=== PATIENT | male | born 1955 | race Caucasian/White ===

== ENCOUNTER 2019-08-25 18:16 | Inpatient (IN) | payer BC, OTHER ==
[~2019-08-25] VITALS: Ht 175.3 cm; Wt 88.8 kg
--- NOTE | 2019-08-25 18:26 | NUR ---
REPORT FROM [facility] THAT PT IS ON WAY VIA AMBULANCE. WILL PASS REPORT TO ONCOMING SHIFT.
--- NOTE | 2019-08-25 18:32 | NUR ---
REC'D PER CART VIA EMS. ALERT AND ORIENTED, RESTING IN BED. DENIES PAIN AND RATES 1. DR. COFFEY NOTIFIED OF ADMIT AND NEED FOR ORDERS.
--- NOTE | 2019-08-25 19:00 | NUR ---
PATIENT IN BED, REPORTS COMFORT LEVEL. FAMILY PRESENT AT BEDSIDE
[2019-08-25] MEDS ORDERED: CATHETER FLUSH 10 ML SYR IV PRN (19:15)
[2019-08-25 20:03] LABS: HEMOGLOBIN 13.7 G/DL (13.3-17.7); RED CELL DISTRIBUTION WIDTH 12.7 % (10.0-14.5); WHITE BLOOD COUNT 15.8 10^3/uL (4.3-11.0)
[2019-08-25 20:07] VITALS: BP 159/87
[2019-08-25 20:16] LABS: CALCIUM 9.1 MG/DL (8.5-10.1); CARBON DIOXIDE 22 MMOL/L (21-32); CHLORIDE 108 MMOL/L (98-107); GLUCOSE 88 MG/DL (70-105); POTASSIUM 4.1 MMOL/L (3.6-5.0); SODIUM 142 MMOL/L (135-145)
[2019-08-25 20:26] LABS: BUN/CREATININE RATIO 13; CREATININE SERUM 1.12 MG/DL (0.60-1.30); GFR ESTIMATED > 60
[2019-08-25] MEDS: LACTATED RINGERS 1,000 ML IV SCH (21:32)
[2019-08-25] MEDS: fentaNYL INJECTION 100 MCG/2 ML AMP IVP PRN (21:34)
[2019-08-26] VITALS (14 sets, daily range): BP systolic 142–182; BP diastolic 65–97
[2019-08-26] MEDS: fentaNYL INJECTION 100 MCG/2 ML AMP IVP PRN ×3 (05:37→14:25)
[2019-08-26] MEDS: LACTATED RINGERS 1,000 ML IV SCH ×3 (06:02→16:48)
--- NOTE | 2019-08-26 08:45 | History & Physical ---
History of Present Illness History of Present Illness Reason for visit/HPI 64 yo M direct admit for left hip fracture sustained at work from a fall of about 2-2.5 feet (2nd or 3rd rung of a ladder). He says he his left hip took the fall and did not injure his arm/hand or head. No loss of consciousness. He laid on the floor for a little bit (a couple minutes) and got to a sitting position. A couple coworkers helped up to a chair with wheels and go him to the truck. He was brought to [facility] where he got a pain shot in his right glut and xrays showed a fractured left hip. EDGAR Palmer called orthopedics who agreed to see patient at [facility] for further evaluation. I am patient's PCP so the patient was admitted to me. Patient currently has no complaints. He is hungry but has not ate since lunch yesterday. Denies any recent illnesses. No issues with bowels or bladder. His pain is in his left hip and does not radiate much. Fentanyl overnight has kept his pain level tolerable. Date of Admission Aug 25, 2019 at 6:33 pm Time Seen by a Provider: 08:20 I consulted on this patient on 08/26/19 08:39 Attending Physician Mejia Coffey MD Admitting Physician Mejia Coffey MD Consult Dr. Weston Jarrell Allergies and Home Medications Allergies Coded Allergies: No Known Drug Allergies (Unverified , 05/23/15) Home Medications Ibuprofen 200 Mg Tablet, 400 MG PO Q8H PRN for PAIN-MILD, (Reported) Multivitamin 1 Each Tablet, 1 TAB PO DAILY, (Reported) Vit C/Starks & Celery Ex/Grp E 1 Each Capsule, 1 CAP PO DAILY, (Reported) Patient Home Medication List Home Medication List Reviewed: Yes Past Agodjhy-Etvihy-Xltwdh Hx Patient Social History Marrital Status: Employed/Student: employed Alcohol Use: Denies Use Recreational Drug Use: No Smoking Status: Never a Smoker Physical Abuse Screen: No Sexual Abuse: No Recent Foreign Travel: No Contact w/other who traveled: No Recent Hopitalizations: No Recent Infectious Disease Expo: No Seasonal Allergies Seasonal Allergies: Yes Surgeries No Respiratory No Cardiovascular No Neurological No Genitourinary No Gastrointestinal No Musculoskeletal No Endocrine History of Endocrine Disorders: No HEENT History of HEENT Disorders: No Cancer No Psychosocial History of Psychiatric Problem: No Integumentary History of Skin or Integumenta: No Blood Transfusions History of Blood Disorders: No Adverse Reaction to a Blood Tr: No Review of Systems Review of Systems General: No Chills, No Night Sweats HEENT: No Head Aches, No Visual Changes Pulmonary: No Dyspnea, No Cough Cardiovascular: No: Chest Pain, Palpitations Gastrointestinal: No: Nausea, Vomiting, Abdominal Pain Genitourinary: No Dysuria, No Frequency Musculoskeletal: leg pain (left hip pain) Neurological: Weakness Physical Exam Vital Signs Vital Signs - First Documented 08/25/19 08/26/19 20:07 17:47 Temp 37.3 Pulse 80 Resp 20 B/P (MAP) 159/87 (111) Pulse Ox 96 O2 Flow Rate 8 Capillary Refill : Less Than 3 Seconds Height, Weight, BMI Height: '" Weight: lbs. oz. kg; 28.89 BMI Method: General Appearance: WD/WN, Mild Distress (with movement; no issue resting) HEENT: PERRL/EOMI Neck: Non Tender Respiratory: Chest Non Tender, Lungs Clear, Normal Breath Sounds, No Accessory Muscle Use, No Respiratory Distress Cardiovascular: Regular Rate, Rhythm, No Edema Gastrointestinal: Non Tender, Soft Rectal: Deferred Back: Normal Inspection, No CVA Tenderness Extremity: Non Tender, Other (pain with moving left hip) Neurologic/Psychiatric: Alert, Oriented x3, No Motor/Sensory Deficits Skin: Normal Color Assessment/Plan Assessment/Plan Admission Dx left hip pain Admission Status: Inpatient Order (span 2 midnights) Reason for Inpatient Admission: left hip pain with left hip fracture He will require 2 midnights to evaluate and undergo surgery for his left hip and then work on a rehab plan. Blood pressure is elevated as well so we will work on getting that under control. Pain is also likely playing a role. Assessment and Plan 08/26/19- IVF LR, NPO for surgery obtaining left hip xrays to further evaluate after his transfer from [facility] fentanyl 50mcg IV for pain is working well. --Dr. Jarrell consulted for Orthopedics. Dispo: good prognosis for successful surgery and rehab. Problems: (1) Fracture of femoral neck, left Qualifiers: Qualified Codes: S72.002A - Fracture of unspecified part of neck of left femur, initial encounter for closed fracture (2) Left hip pain (3) Hypertension Assessment & Plan: previously on losartan but stopped it because he was having normal readings off of it. (4) Gout Assessment & Plan: history of gout treating previously with colchicine. Clinical Quality Measures DVT/VTE Risk/Contraindication: Risk Factor Score Per Nursin RFS Level Per Nursing on Admit: 4+=Very High MEJIA COFFEY MD Aug 26, 2019 08:45
[2019-08-26] MEDS ORDERED: MULT1TAB69 PO (09:06)
[2019-08-26] MEDS ORDERED: IBUP-30 PO (09:06)
[2019-08-26] MEDS ORDERED: VIT1CAPS4 PO (09:06)
--- NOTE | 2019-08-26 09:06 | NUR ---
SPOKE WITH THE PATIENT ABOUT HIS MEDICATIONS. HE STATES HE DOES NOT TAKE ANYTHING ON A REGULAR BASIS PRESCRIPTION. HE HAS BEEN TAKING A MTV DAILY AND JOSHI TART DAILY OTC. HE ALSO TAKES 2 IBU OTC NEEDED BUT NOT VERY OFTEN. HE RECENTLY TOOK A ROUND OF COLCHICINE BUT DOES NOT TAKE IT REGULARLY.
--- NOTE | 2019-08-26 10:20 | Diagnostic Imaging Report ---
Left hip at 9:40. Indication: Hip pain AP and lateral views were obtained. There are no prior studies available for comparison. There is a slightly impacted essentially nondisplaced fracture of the left femoral neck. No other fracture or acute bony abnormality is noted. Hip joint itself is well maintained. The soft tissues are unremarkable. Impression: 1. There is a slightly impacted essentially nondisplaced fracture left femoral neck. If further evaluation of the extent of injury to the left femoral neck is desired, then CT will be recommended. 2. There is no acute bony abnormality noted otherwise. 3. The results were called to Dr. Meija Adam. Dictated by: Dictated on workstation # [id number]
[2019-08-26] MEDS ORDERED: LACTATED RINGERS 1,000 ML IV PRN (14:12)
[2019-08-26] MEDS ORDERED: proPOfol 200 MG/20 ML (DIPRIVAN) VIAL IV ONE (14:46)
[2019-08-26] MEDS ORDERED: BUPIVACAINE 0.25% 30 ML (SENSORCAINE) VIAL ONE ×2 (14:46→16:23)
[2019-08-26] MEDS ORDERED: LIDOCAINE PF 2% 5 ML (XYLOCAINE) VIAL ONE (14:46)
[2019-08-26] MEDS ORDERED: fentaNYL INJECTION 100 MCG/2 ML AMP ONE (14:46)
[2019-08-26] MEDS ORDERED: BUPIVACAINE 0.5% 30 ML (SENSORCAINE) VIAL ONE (14:55)
[2019-08-26] MEDS ORDERED: SEVOFLURANE (ULTANE) 15 ML INHAL SOLN ONE ×3 (16:00→17:42)
[2019-08-26] MEDS ORDERED: MIDAZOLAM 2 MG/2 ML (VERSED) VIAL ONE (16:00)
--- NOTE | 2019-08-26 16:07 | Consultation ---
History of Present Illness History of Present Illness Patient Consulted On(rom/time) 08/26/19 16:02 Date Seen by Provider: Aug 26, 2019 Time Seen by Provider: 16:03 Reason for Visit: Left hip fracture History of Present Illness Patient a pleasant 64 y/o WM that presents with CC of acute onset of severe Left hip pain secondary to a fall from the low portion of a step ladder. He denies additional injuries and has no additional complaints. Orthopedic service consulted for definitive management of his injury. Allergies and Home Medications Allergies Coded Allergies: No Known Drug Allergies (Unverified , 05/23/15) Home Medications Ibuprofen 200 Mg Tablet, 400 MG PO Q8H PRN for PAIN-MILD, (Reported) Multivitamin 1 Each Tablet, 1 TAB PO DAILY, (Reported) Vit C/Starks & Celery Ex/Grp E 1 Each Capsule, 1 CAP PO DAILY, (Reported) Patient Home Medication List Home Medication List Reviewed: Yes Past Nfzivmv-Novfbe-Mwggfu Hx Patient Social History Alcohol Use: Denies Use Recreational Drug Use: No Smoking Status: Never a Smoker Recent Foreign Travel: No Contact w/Someone Who Travel: No Recent Infectious Disease Expo: No Recent Hopitalizations: No Seasonal Allergies Seasonal Allergies: Yes Past Medical History Surgeries: No Respiratory: No Cardiac: No Neurological: No Genitourinary: No Gastrointestinal: No Musculoskeletal: No Endocrine: No HEENT: No Cancer: No Psychosocial: No Integumentary: No Blood Disorders: No Adverse Reaction/Blood Tranf: No Review of Systems-General Constitutional: no symptoms reported EENTM: no symptoms reported Respiratory: no symptoms reported Cardiovascular: no symptoms reported Gastrointestinal: no symptoms reported Genitourinary: no symptoms reported Musculoskeletal: joint pain Skin: no symptoms reported Psychiatric/Neurological: No Symptoms Reported Physical Exam-General Problems Physical Exam Vital Signs Vital Signs - First Documented 08/25/19 20:07 Temp 37.3 Pulse 80 Resp 20 B/P (MAP) 159/87 (111) Pulse Ox 96 Capillary Refill : Less Than 3 Seconds Eyes: Bilateral Eye Normal Inspection, Bilateral Eye PERRL, Bilateral Eye EOMI HEENT: PERRL/EOMI, normal ENT inspection Neck: non-tender, full range of motion, supple, normal inspection Respiratory: chest non-tender, no respiratory distress, no accessory muscle use Cardiovascular: normal peripheral pulses, regular rate, rhythm, no edema Peripheral Pulses: 2+ Dorsalis Pedis (R), 2+ Left Dors-Pedis (L) Gastrointestinal: non tender, soft, no organomegaly, no pulsatile mass Extremities: no calf tenderness, normal capillary refill, other (LLE: motor/sensation grossly intact, all compartments soft/NT, foot well perfused, no open wounds) Neurologic/Psychiatric: incident coordinator II-XII nml as tested, no motor/sensory deficits, alert, normal mood/affect, oriented x 3 Skin: warm/dry Assessment/Plan Assessment/Plan Admission Diagnosis/Plan Left femoral neck fracture Plan for primary fixation with screws Treatment plan discussed. Questions addressed and answered Informed consent obtained Clinical Quality Measures DVT/VTE Risk/Contraindication: Risk Factor Score Per Nursin RFS Level Per Nursing on Admit: 4+=Very High ABHISHEK WITT DO Aug 26, 2019 16:07
[2019-08-26] MEDS ORDERED: ONDANSETRON 4 MG/2 ML (SDV) Z0FRAN ONE ×2 (16:18→16:32)
[2019-08-26] MEDS ORDERED: PHENYLEPHRINE 100 MCG/ML 10 ML (ANESTHESIA) SYR ONE (16:18)
[2019-08-26] MEDS ORDERED: DEXAMETHASONE 10 MG/ML (DECADRON) 1 ML VIAL ONE (16:18)
[2019-08-26] MEDS ORDERED: morphine INJ 10 MG/ML 1ML (SYR OR VIAL) ONE (16:32)
[2019-08-26] MEDS ORDERED: HYDROmorphone 2 MG/ML VIAL (DILAUDID) ONE (16:32)
[2019-08-26] MEDS ORDERED: ceFAZolin INJECTION 2,000 MG ONE (16:39)
--- NOTE | 2019-08-26 17:31 | Diagnostic Imaging Report ---
RESULT: HISTORY: 64 years-old Male with left femur fracture. COMPARISON: Radiographs from the same day. TECHNIQUE: Four intraoperative fluoroscopic images of the left hip in the frontal and lateral projections. FLUOROSCOPIC TIME: 112.2 seconds. FINDINGS: Intraoperative fluoroscopic images were obtained during internal fixation of the proximal left femur with three partially threaded cannulated cephalo-cervical screws. Alignment appears improved. IMPRESSION: Fluoroscopic intraoperative images obtained during internal fixation of the left femoral neck fracture. Dictated by: Dictated on workstation # [id number]
--- NOTE | 2019-08-26 17:38 | Progress Note-Post Operative ---
Post-Operative Progess Note Surgeon (s)/Member Of Technical Staff (s) Surgeon ABHISHEK WITT DO Member Of Technical Staff: None Pre-Operative Diagnosis Minimally displaced fracture Left femoral neck Post-Operative Diagnosis Same Procedure & Operative Findings Date of Procedure 08/26/19 Procedure Performed/Findings Closed reduction/internal fixation Left femoral neck fracture Anesthesia Type GETA Estimated Blood Loss Estimated blood loss (mL): 20 Specimens/Packing Specimens Removed None Packing: No packing Complications: none Drains: none Disposition: tolerated procedure well; transferred to PACU in stable condition ABHISHEK WITT DO Aug 26, 2019 17:38
[2019-08-26] MEDS ORDERED: HYDROmorphone 2 MG/ML VIAL (DILAUDID) IV ONE (18:00)
[2019-08-26] MEDS ORDERED: PROMETHAZINE INJ 25 MG/ML (PHENERGAN) AMP IVP ONE (18:00)
[2019-08-26] MEDS ORDERED: MEPERIDINE (DEMEROL) INJ 50 MG/ML IVP ONE (18:00)
[2019-08-26] MEDS ORDERED: ONDANSETRON 4 MG/2 ML (SDV) Z0FRAN IVP PRN (18:00)
[2019-08-26] MEDS ORDERED: morphine INJ 10 MG/ML 1ML (SYR OR VIAL) IVP ONE (18:00)
[2019-08-26] MEDS: NS IV 1000 ML 1,000 ML IV SCH (20:18)
[2019-08-26] MEDS: ceFAZolin 2 GM IV Premixed 50 ML IV SCH (23:05)
[2019-08-27] MEDS: LACTATED RINGERS 1,000 ML IV SCH ×2 (00:48→07:52)
[2019-08-27] MEDS: NS IV 1000 ML 1,000 ML IV SCH ×2 (01:56→10:31)
[2019-08-27 04:06] VITALS: BP 133/74
[2019-08-27 04:45] LABS: HEMOGLOBIN 12.7 G/DL (13.3-17.7)
[2019-08-27] MEDS: ceFAZolin 2 GM IV Premixed 50 ML IV SCH ×2 (06:26→15:48)
[2019-08-27 08:00] VITALS: BP 152/79
[2019-08-27] MEDS: ENOXAPARIN 40 MG/0.4 ML (LOVENOX) SYR SC SCH (08:13)
--- NOTE | 2019-08-27 08:46 | Physical Therapy Evaluation ---
PT Evaluation-General Medical Diagnosis Admission Date Aug 25, 2019 at 18:33 Medical Diagnosis: left femoral neck fracture Onset Date: Aug 25, 2019 Therapy Diagnosis Therapy Diagnosis: debility Precautions Precautions/Isolations: Fall Prevention, Standard Precautions Weight Bear Status Right Lower Extremity: Right Full Weight Bearing Left Lower Extremity: Left Touch Toe Bearing Referral Physician: Wesly Reason for Referral: Evaluation/Treatment Medical History Current History fall at work landing on left side Reviewed History: Yes Social History Home: Single Level Current Living Status: Spouse Entry Into Home: Ramp Prior Prior Level of Function SCALE: Activities may be completed with or without assistive devices. 0-Uznbamnsla-fdvpmoz completes the activity by him/herself with no assistance from a helper. 5-Set-up or Clean-up Assistance-helper sets up or cleans up; patient completes activity. [place] assists only prior to or following the activity. 4-Supervision or Touching Assistance-helper provides verbal cues and/or touching/steadying and/or contact guard assistance as patient completes activity. Assistance may be provided throughout the activity or intermittently. 3-Partial/Moderate Assistance-helper does LESS THAN HALF the effort. [place] lifts, holds or supports trunk or limbs, but provides less than half the effort. 2-Substantial/Maximal Assistance-helper does MORE THAN HALF the effort. [place] lifts or holds trunk or limbs and provides more than half the effort. 6-Jwiavharb-uguwys does ALL the effort. Patient does none of the effort to complete the activity. Or, the assistance of 2 or more helpers is required for the patient to complete the activity. If activity was not attempted, code reason: 7-Patient Refused. 9-Not Applicable-not attempted and the patient did not perform the activity before the current illness, exacerbation or injury. 10-Not Attempted due to Environmental Limitations-(lack of equipment, weather restraints, etc.). 88-Not Attempted due to Medical Conditions or Safety Concerns. Bed Mobility: 6 Transfers (B,C,W/C): 6 Gait: 6 Stairs: 6 Indoor Mobility (Ambulation): Independent Stairs: Independent Prior Devices Use: None PT Evaluation-Current Subjective Patient agrees to PT. Pain Numeric Pain Scale: 5-Moderate Pain Location: Left Location Body Site: Hip Pain Description: Acute Objective Patient Orientation: Normal For Age Problem Solving: Good Attachments: IV ROM/Strength ROM Lower Extremities bilateral LE WFL Strength Lower Extremities right LE 5/5; left LE 3+/5 grossly Integumentary/Posture Integumentary refer to nursing notes Bowel Incontinence: No Bladder Incontinence: No Posture WFL Neuromuscular (Tone, Coordination, Reflexes) grossly intact Sensory Vision: Functional Hearing: Impaired Sensation Right Lower Extremit: Intact Sensation Left Lower Extremity: Intact Transfers Roll Left to Right (QC): 6 Sit to Lying (QC): 6 Lying to Sitting/Side of Bed(Q: 6 Sit to Stand (QC): 6 Chair/Pgw-oy-Qjbop Xfer(QC): 6 Gait Does the Patient Walk?: Yes Mode of Locomotion: Walk Anticipated Mode of Locomotion: Walk Distance (FIM): 3=150 ft Walk 10 feet (QC): 6 Walk 50 ft with 2 Turns(QC): 6 Walk 150 ft (QC): 6 Distance: 225' Gait Assistive Device: FWW Comments/Gait Description TTWB left LE with compliance Balance Sitting Static: Normal Sitting Dynamic: Normal Standing Static: Normal Standing Dynamic: Normal Assessment/Needs 64 y.o. male, will be seen short term by skilled PT to ensure safe return to home with TTWB left LE with FWW use. Rehab Potential: Good PT Patch Press Operator Goals Nursing Home Goals PT Patch Press Operator Goals Time Frame: Aug 31, 2019 Sit to Lying (QC): 6 Lying-Sitting on Side/Bed(QC): 6 Sit to Stand (QC): 6 Roll Left to Right (QC): 6 Chair/Giu-rm-Yposr Xfer(QC): 6 Does the Patient Walk: Yes Distance: 225' Walk 10 feet (QC): 6 Walk 10ft-Uneven Surface(QC): 6 Walk 50ft with 2 Turns (QC): 6 Walk 150 ft (QC): 6 Gait Assistive Device: FWW PT Plan Treatment/Plan Treatment Plan: Continue Plan of Care Treatment Plan: Education, Functional Activity [place], Gait, Safety, Therapeutic Exercise, Transfers Treatment Duration: Aug 31, 2019 Frequency: 6 times per week Estimated Hrs Per Day: .25 hour per day Patient and/or Family Agrees t: Yes Safety Risks/Education Patient Education: Gait Training, Safety Issues Teaching Recipient: Patient Teaching Methods: Demonstration, Discussion Response to Teaching: Verbalize Understanding, Return Demonstration Discharge Recommendations Equpiment Recommendations-D/C: Front Wheeled Walker Time/GCodes Time In: 705 Time Out: 730 Total Billed Treatment Time: 25 Total Billed Treatment 1 visit EVModC 15 min GT 10 min VALERIO VAZQUEZ PT Aug 27, 2019 08:46
--- NOTE | 2019-08-27 10:27 | Occupational Therapy Eval ---
OT Evaluation-General/PLF Medical Diagnosis Admission Date Aug 25, 2019 at 18:33 Medical Diagnosis: left femoral neck fracture Onset Date: Aug 25, 2019 Therapy Diagnosis Therapy Diagnosis: decreased functional mobility and ADL function Precautions Precautions/Isolations: Fall Prevention, Standard Precautions Safety Interventions: Reorient-PRN Weight Bear Status Weight Bearing Restriction: Weight Bearing/Tolerated, Touch Toe Bearing Location Restriction: L LE Referral Physician: Wesly Referral Reason: Activity Tolerance, Self Care, Evaluation/Treatment, Strengthening/ROM Medical History Current History L femoral neck fracture; fell off step ladder at work. Reviewed History: Yes Social History Home: Single Level Current Living Status: Spouse Entry Into Home: Ramp Steps Into Home: 0 Steps Inside Home: 0 ADL-Prior Level of Function SCALE: Activities may be completed with or without assistive devices. 8-Buiotqgtmb-djuxxwi completes the activity by him/herself with no assistance from a helper. 5-Set-up or Clean-up Assistance-helper sets up or cleans up; patient completes activity. [place] assists only prior to or following the activity. 4-Supervision or Touching Assistance-helper provides verbal cues and/or touching/steadying and/or contact guard assistance as patient completes activity. Assistance may be provided throughout the activity or intermittently. 3-Partial/Moderate Assistance-helper does LESS THAN HALF the effort. [place] lifts, holds or supports trunk or limbs, but provides less than half the effort. 2-Substantial/Maximal Assistance-helper does MORE THAN HALF the effort. [place] lifts or holds trunk or limbs and provides more than half the effort. 5-Divipzyto-zwwlat does ALL the effort. Patient does none of the effort to complete the activity. Or, the assistance of 2 or more helpers is required for the patient to complete the activity. If activity was not attempted, code reason: 7-Patient Refused. 9-Not Applicable-not attempted and the patient did not perform the activity before the current illness, exacerbation or injury. 10-Not Attempted due to Environmental Limitations-(lack of equipment, weather restraints, etc.). 88-Not Attempted due to Medical Conditions or Safety Concerns. Self Care: Independent Functional Cognition: Independent DME/Equipment: Bath Chair, Tub/Shower (+ walk in shower) Occupation: mechanic welder truck driver Drive Self: Yes OT Current Status Subjective Pt states "discomfort" at incision site but denies pain, agreeable to OT eval. Mental Status/Objective Patient Orientation: Person, Place, Situation, Normal For Age Attachments: IV Current Glasses/Contacts: Yes Hearing Aids: No Dentures/Partials: No Hand Dominance: Right Upper Extremity ROM WFL BUE Upper Extremity Coordination WFL BUE Upper Extremity Sensation WFL Upper Extremity Strength WFL bilaterally ADL-Treatment Eating (QC): 6 Lower Body Dressing (QC): 2 On/Off Footwear (QC): 1 Other Treatments Pt seen in recliner chair, sit to stand with SBA, requires increased time and cues for TTWB. Pt returns to recliner chair, unable to doff/ don sock. Pt states at home, able to assist prior and after work. Pt requires max A for LB dressing tasks. Pt left in recliner chair, all needs met, call light in reach. Education OT Patient Education: Correct positioning, Disease process, Modified ADL techniques, Progress toward Goal/Update tx plan, Purpose of tx/functional activities, Safety issues, Use of adapted equipment Teaching Recipient: Patient Teaching Methods: Demonstration, Discussion Response to Teaching: Verbalize Understanding, Return Demonstration OT Short Term Goals Short Term Goals Lower Body Dressing(FIM): 4 Transfers (B,C,W/C) (FIM): 6 1=Demonstrate adherence to instructed precautions during ADL tasks. 2=Patient will verbalize/demonstrate understanding of assistive devices/modifications for ADL. 3=Patient will improve strength/tolerance for activity to enable patient to perform ADL's. OT Incinerator Operator Goals Jail Goals Eating (QC): 6 Oral Hygiene (QC): 6 Shower/Bathe Self (QC): 5 Upper Body Dressing (QC): 6 Lower Body Dressing (QC): 6 On/Off Footwear (QC): 6 Toileting Hygiene (QC): 6 Toilet/Commode Transfer (QC): 6 Additional Goals: 1-Demonstrate ADL Tasks, 2-Verbalize Understanding, 3-ImproveStrength/[place] 1=Demonstrate adherence to instructed precautions during ADL tasks. 2=Patient will verbalize/demonstrate understanding of assistive devices/modifications for ADL. 3=Patient will improve strength/tolerance for activity to enable patient to perform ADL's. OT Education/Plan Problem List/Assessment Assessment: Decreased Activ Tolerance, Dependent Transfers, Impaired Funct Balance, Impaired I ADL's, Impaired Self-Care Skills Discharge Recommendations Plan/Recommendations: Continue POC Therapy Discharge Recommendati: Intermittent Supervision Equpiment Recommendations-D/C: Rails on Tub/Shower, Staffing Analyst, Sock Aide, Dressing Stick Patient/Family Goals Return home Treatment Plan/Plan of Care Treatment,Training & Education: Yes Patient would benefit from OT for education, treatment and training to promote independence in ADL's, mobility, safety and/or upper extremity function for ADL's. Plan of Care: ADL Retraining, Functional Mobility, Group Exercise/Act as Ind, UE Funct Exercise/Act Treatment Duration: Sep 01, 2019 Frequency: 5 times per week Estimated Hrs Per Day: .25 hour per day Agreement: Yes Rehab Potential: Good Time/GCodes Start Time: 09:22 Stop Time: 09:37 Total Time Billed (hr/min): 15 Billed Treatment Time 1MICHELLE (15) LEVON LING OTR Aug 27, 2019 10:27
--- NOTE | 2019-08-27 10:52 | Progress Note - Hospitalist ---
Subjective HPI/CC On Admission Date Seen by Provider: Aug 27, 2019 Time Seen by Provider: 10:50 Subjective/Events-last exam Pt reports feeling well. Already up with therapy. No pain. No complaints. Objective Exam Vital Signs Vital Signs Date Time Temp Pulse Resp B/P (MAP) Pulse Ox O2 Delivery O2 Flow Rate FiO2 08/27/19 08:00 36.6 83 18 152/79 (103) 92 Nasal Cannula 2.00 Capillary Refill : Less Than 3 Seconds General Appearance: No Apparent Distress Respiratory: Lungs Clear, No Respiratory Distress Cardiovascular: Regular Rate, Rhythm, No Murmur Neurologic/Psychiatric: Alert, Oriented x3, Normal Mood/Affect Results/Procedures Lab Laboratory Tests 08/27/19 04:20 Patient resulted labs reviewed. Assessment/Plan Assessment and Plan Assess & Plan/Chief Complaint Left Hip Fracture Continue PT/OT Pain regimen Ortho consulted, appreciate recs h/o HTN Off Losartan Trend Anemia-due to blood loss Mild Clinical Quality Measures DVT/VTE Risk/Contraindication: Risk Factor Score Per Nursin RFS Level Per Nursing on Admit: 4+=Very High JUANIAT ZAMORANO MD Aug 27, 2019 10:52
--- NOTE | 2019-08-27 11:31 | Anesthesia-General Post-Op ---
General Patient Condition Mental Status/LOC: Same as Preop Cardiovascular: Satisfactory Nausea/Vomiting: Absent Respiratory: Satisfactory Pain: Controlled Complications: Absent Post Op Complications Complications None Follow Up Care/Instructions Patient Instructions None needed. Anesthesia/Patient Condition Patient Condition Patient is doing well, no complaints, stable vital signs, no apparent adverse anesthesia problems. No complications reported per nursing. LAWRENCE GARNICA CRNA Aug 27, 2019 11:31
[2019-08-27 12:00] VITALS: BP 138/81
[2019-08-27] MEDS ORDERED: OXC5T PO (14:36)
[2019-08-27 16:17] VITALS: BP 125/58
[2019-08-27 19:21] VITALS: BP 145/77
[2019-08-28] VITALS (7 sets, daily range): BP systolic 131–172; BP diastolic 67–92
[2019-08-28] MEDS: ENOXAPARIN 40 MG/0.4 ML (LOVENOX) SYR SC SCH (08:20)
--- NOTE | 2019-08-28 09:05 | Physical Therapy Daily Note ---
PT Daily Note-Current Subjective Patient reports he has been up ambulating PRN in hallway. No c/o. Pain Numeric Pain Scale: 5-Moderate Pain Location: Left Location Body Site: Hip Pain Description: Acute Mental Status Patient Orientation: Normal For Age Transfers SCALE: Activities may be completed with or without assistive devices. 2-Mkzokxfjde-iggpqtj completes the activity by him/herself with no assistance from a helper. 5-Set-up or Clean-up Assistance-helper sets up or cleans up; patient completes activity. [place] assists only prior to or following the activity. 4-Supervision or Touching Assistance-helper provides verbal cues and/or touching/steadying and/or contact guard assistance as patient completes activity. Assistance may be provided throughout the activity or intermittently. 3-Partial/Moderate Assistance-helper does LESS THAN HALF the effort. [place] lifts, holds or supports trunk or limbs, but provides less than half the effort. 2-Substantial/Maximal Assistance-helper does MORE THAN HALF the effort. [place] lifts or holds trunk or limbs and provides more than half the effort. 7-Sfkckkhbz-izgjke does ALL the effort. Patient does none of the effort to complete the activity. Or, the assistance of 2 or more helpers is required for the patient to complete the activity. If activity was not attempted, code reason: 7-Patient Refused. 9-Not Applicable-not attempted and the patient did not perform the activity before the current illness, exacerbation or injury. 10-Not Attempted due to Environmental Limitations-(lack of equipment, weather restraints, etc.). 88-Not Attempted due to Medical Conditions or Safety Concerns. Sit to Stand (QC): 6 Weight Bearing Right Lower Extremity: Right Full Weight Bearing Left Lower Extremity: Left Touch Toe Bearing Gait Training Does the Patient Walk?: Yes Distance: 250' Walk 10 feet (QC): 6 Walk 50 ft with 2 Turns(QC): 6 Walk 150 ft (QC): 6 Gait Assistive Device: FWW TTWB left LE/slow, steady gait sequence Exercises Seated Therapy Exercises: Ankle pumps, Long arc quads Seated Reps: 15 Assessment Patient tolerated treatment well and is compliant with TTWB left LE. Patient to continue to be up in room and hallway ad rakesh. PT Mcfp Goals Fur Nailer Goals PT Mcfp Goals Time Frame: Aug 31, 2019 Sit to Lying (QC): 6 Lying-Sitting on Side/Bed(QC): 6 Sit to Stand (QC): 6 Roll Left to Right (QC): 6 Chair/Cvh-ln-Rvkop Xfer(QC): 6 Does the Patient Walk: Yes Distance: 225' Walk 10 feet (QC): 6 Walk 10ft-Uneven Surface(QC): 6 Walk 50ft with 2 Turns (QC): 6 Walk 150 ft (QC): 6 Gait Assistive Device: FWW PT Plan Treatment/Plan Treatment Plan: Continue Plan of Care Treatment Plan: Education, Functional Activity Costa, Gait, Safety, Therapeutic Exercise, Transfers Treatment Duration: Aug 31, 2019 Frequency: 6 times per week Estimated Hrs Per Day: .25 hour per day Patient and/or Family Agrees t: Yes Time/GCodes Time In: 825 Time Out: 843 Total Billed Treatment Time: 18 Total Billed Treatment 1 visit FA 18 min VALERIO VAZQUEZ PT Aug 28, 2019 09:05
--- NOTE | 2019-08-28 10:00 | Progress Note - Hospitalist ---
Subjective HPI/CC On Admission Date Seen by Provider: Aug 28, 2019 Time Seen by Provider: 09:58 Subjective/Events-last exam Pt reports doing well. at bedside and has questions about DC planing and needs for the home. Objective Exam Vital Signs Vital Signs Date Time Temp Pulse Resp B/P (MAP) Pulse Ox O2 Delivery O2 Flow Rate FiO2 08/28/19 08:00 37.2 87 18 159/75 (103) 93 Room Air 08/27/19 16:17 2.00 Capillary Refill : Less Than 3 Seconds General Appearance: No Apparent Distress, WD/WN Cardiovascular: Regular Rate, Rhythm, No Murmur Gastrointestinal: Normal Bowel Sounds, Soft Neurologic/Psychiatric: Alert, Oriented x3 Results/Procedures Lab Patient resulted labs reviewed. Assessment/Plan Assessment and Plan Assess & Plan/Chief Complaint Left Hip Fracture Continue PT/OT- doing well, will likely DC home tomorrow Pain regimen- well controlled Ortho consulted, appreciate recs SW consult h/o HTN Off Losartan Trend Anemia-due to blood loss Mild Clinical Quality Measures DVT/VTE Risk/Contraindication: Risk Factor Score Per Nursin RFS Level Per Nursing on Admit: 4+=Very High JUANITA ZAMORANO MD Aug 28, 2019 10:00
[2019-08-28] MEDS: BISACODYL 5 MG (DULCOLAX) TABLET PO PRN (12:45)
--- NOTE | 2019-08-28 17:05 | OPERATIVE REPORT ---
DATE OF SERVICE: 08/26/2019 PREPROCEDURE DIAGNOSIS: Closed, minimally displaced transcervical fracture of left femoral neck. POSTPROCEDURE DIAGNOSIS: Closed, minimally displaced transcervical fracture of left femoral neck. PROCEDURE: Closed reduction with application of internal fixation of minimally displaced transcervical fracture of left femoral neck. INSTRUMENTATION USED: DePuy Synthes partially threaded cannulated screws 7.3 mm in diameter x3. ATTENDING SURGEON: Dr. Abhishek Jarrell. ANESTHESIA: General endotracheal. ESTIMATED BLOOD LOSS: 20 mL. COMPLICATIONS: None. SPECIMENS: None. DRAINS: None. FLUIDS: Per anesthesia record. BRIEF HISTORY AND INDICATIONS: The patient is a pleasant 64-year-old male who sustained a fall from a low level of stepladder on 08/25/2019 landing onto his left hip. He subsequently had severe left hip pain and an inability to bear weight or ambulate on his left lower extremity. He was taken to a local urgent care center where plain radiographs of the patient's left hip demonstrated a left femoral neck fracture. He was subsequently transferred to [facility] for definitive management of his injury. On exam, the patient had severe left hip pain with any attempted range of motion, he had intact motor and sensory function throughout, the skin was intact. There were no open wounds and his left foot was well perfused. I discussed the nature of the patient's injury in detail including the need for operative fixation. I discussed his surgical treatment options in detail including a primary fixation versus arthroplasty. I discussed the recommended treatment with the patient in detail including the risks, benefits, potential complications, expected outcomes, indications and alternatives. The risks that were discussed included, but were not limited to significant bleeding, infection, damage to surrounding neurovascular and soft tissue structures, avascular necrosis, malunion, nonunion, potential serious reactions to anesthesia, potential mechanical failure and/or irritation of the hardware, and potential need for secondary surgical procedures. The patient gave informed written consent to proceed as planned after all of his questions were addressed and answered to his satisfaction. PROCEDURE NOTE: After correctly identifying the patient as the patient in the preoperative holding area and after his operative site was appropriately marked, he was transferred to the operating room. Once in the operating room, he had successful induction of general endotracheal anesthesia and he was transferred to a radiolucent fracture table and placed in the supine position. All bony prominences were meticulously padded. The bilateral lower extremities were secured to the fracture table in standard fashion. A closed reduction maneuver of the patient's fracture was completed under AP and lateral C-arm guidance and acceptable reduction was confirmed prior to proceeding with the case. The operative site was then prepped and draped in the routine sterile fashion. Prior to beginning the case, we completed an operating room timeout with all parties involved in the case and agreement and verified appropriate infusion of prophylactic antibiotics. Using C-arm fluoroscopic guidance, the appropriate incision site was marked on the skin with a sterile marking pen. With a #10 blade scalpel, incision was made beginning at the distal portion of the greater trochanter and extending distally approximately 3 cm, incising through the skin and subcutaneous tissue. Bovie cautery was then used to dissect through the fascia of the IT band and vastus lateralis to gain access to the proximal lateral femur. Under fluoroscopic guidance, a 3.2 mm threaded tip guide pins were then introduced into the femoral head and neck in the inverted triangular position. Once the three guide pins were confirmed to be in an appropriate position. The measuring device was used to measure the length of the screws to be placed. The DePuy Synthes partially threaded 7.3 mm cannulated screws with 32 mm threads were then placed over the guide pins in standard fashion. The inferior screw was placed first so as to achieve good compression across the fracture site. Once all three screws were placed. AP and lateral C-arm fluoroscopy confirmed that all of the screws were in the appropriate position and the fracture maintained acceptable alignment. All three guide pins were then removed and then the wound was irrigated with copious amounts of sterile saline. Final AP and lateral C-arm images confirmed that all the hardware was in the appropriate position and the fracture remained in acceptable position. The wound was irrigated with copious amounts of sterile saline and standard closure was completed with 0 Vicryl for the deep fascia, 2-0 Vicryl for the subcutaneous tissue, and a running 4-0 Monocryl subcuticular stitch and Steri-Strips for the skin. The patient had a sterile dressing applied followed by being awakened and extubated in the operating room without incident. He was then transferred to the PACU in stable condition. He tolerated the procedure quite well without complications. All counts were correct at the end of the case. Job ID: [id number] DocumentID: [id number] Dictated Date: 08/28/2019 12:39:22 Treatment Manager Date: 08/28/2019 17:05:19 Dictated By: ABHISHEK GAGNON
[2019-08-29] VITALS: BP 168/79
[2019-08-29 08:00] VITALS: BP 133/80
[2019-08-29] MEDS: fentaNYL INJECTION 100 MCG/2 ML AMP IVP PRN (08:16)
[2019-08-29] MEDS: ENOXAPARIN 40 MG/0.4 ML (LOVENOX) SYR SC SCH (08:17)
--- NOTE | 2019-08-29 08:57 | Discharge Summary ---
Diagnosis/Chief Complaint Date of Admission Aug 25, 2019 at 18:33 Date of Discharge Discharge Date: Aug 28, 2019 Reason Hospital Visit 64 yo M direct admit for left hip fracture sustained at work from a fall of about 2-2.5 feet (2nd or 3rd rung of a ladder). He says he his left hip took the fall and did not injure his arm/hand or head. No loss of consciousness. He laid on the floor for a little bit (a couple minutes) and got to a sitting position. A couple coworkers helped up to a chair with wheels and go him to the truck. He was brought to [facility] Urgent care where he got a pain shot in his right glut and xrays showed a fractured left hip. EDGAR Palmer called orthopedics who agreed to see patient at [facility] for further evaluation. I am patient's PCP so the patient was admitted to me. Patient currently has no complaints. He is hungry but has not ate since lunch yesterday. Denies any recent illnesses. No issues with bowels or bladder. His pain is in his left hip and does not radiate much. Fentanyl overnight has kept his pain level tolerable. Discharge Summary Hospital Course Labs Laboratory Tests 08/27/19 04:20: Hemoglobin 12.7L, Hematocrit 38L Procedures None. Discharge Physical Examination Allergies: Coded Allergies: No Known Drug Allergies (Unverified , 05/23/15) Vitals & I&Os Vital Signs Date Time Temp Pulse Resp B/P (MAP) Pulse Ox O2 Delivery O2 Flow Rate FiO2 08/29/19 00:00 37.7 91 18 168/79 (108) 92 Room Air 08/27/19 16:17 2.00 Discharge Home Medications Reviewed and agree with Discharge Medication list on patient's Discharge Instruction sheet Instructions to Patient/Family Please see electronic discharge instructions given to patient. Clinical Quality Measures DVT/VTE Risk/Contraindication: Risk Factor Score Per Nursin RFS Level Per Nursing on Admit: 4+=Very High CHELLE COFFEY MD Aug 29, 2019 08:57
--- NOTE | 2019-08-29 08:57 | D/C HH Face to Face Order ---
D/C Face to Face Orders Reconcile Patient Problems Problems Reviewed?: Yes Instructions for Patient [facility], Patient Instructions/FollowUp: [address] Jarrell 2 weeks with [facility] Physician to follow Patient: Dr. Mejia Adam Discharge Diet for Home: Regular Diet Patient Data-Allergies,Ht & Wt Patient Allergies: Coded Allergies: No Known Drug Allergies (Unverified , 05/23/15) Home Health Need/Face to Face Date of Face to Face: Aug 29, 2019 Clinical Findings: Non or partial weight bearing, Pain with ambulation, Unsteady gait, Other-list in note (left hip fracture status post repair- ) I have seen Pt ydle-tv-fhps: Yes Discharged To: Home Diagnosis/Conditions: Left hip fracture- status post repair Patient is Homebound due to: Les fall risk due to instabilty, Non-weight bearing, Pain w/ambulation Homebound Status Due to the above stated illness, injury or surgical procedure (medical condition or diagnosis) and associated clinical findings, the patient is homebound because of his/her inability to leave home except with aid of a supportive device and/or person AND leaving the home requires a considerable and taxing effort or is medically contraindicated. Pt req the following assistanc: Walker Home Health Nursing Orders Home Health Services Order: Accounts Adjustable Clerk-Evaluate & Treat, Physical Therapy-Evaluate & Treat check with Dr. Jarrell for post hip repair orders. Home Health Infusion Therapy Line Start Date: Aug 25, 2019 Therapy Orders Therapy Orders: OT (must have SN or PT order), Physical Therapy Therapy Specific Orders: Eval assistive deivces, Teach enviro modifications/safety, Gait training, Increase strength/endurance, Restore ROM Certify Stmt I certify that this patient is under my care and that I, a nurse practitioner or a physician; a radiology physician assistant working with me, had a face to face encounter that - meets the physician face to face encounter requirements with this patient as dated. MEJIA ADAM MD Aug 29, 2019 08:57
--- NOTE | 2019-08-29 11:13 | Physical Therapy Daily Note ---
PT Daily Note-Current Subjective Patient and spouse agree to PT. Pain Numeric Pain Scale: 8 Location: Left Location Body Site: Thigh Pain Description: Acute Mental Status Patient Orientation: Normal For Age Transfers SCALE: Activities may be completed with or without assistive devices. 5-Cwbjhiuzsq-koffrav completes the activity by him/herself with no assistance from a helper. 5-Set-up or Clean-up Assistance-helper sets up or cleans up; patient completes activity. [place] assists only prior to or following the activity. 4-Supervision or Touching Assistance-helper provides verbal cues and/or touching/steadying and/or contact guard assistance as patient completes activity. Assistance may be provided throughout the activity or intermittently. 3-Partial/Moderate Assistance-helper does LESS THAN HALF the effort. [place] lifts, holds or supports trunk or limbs, but provides less than half the effort. 2-Substantial/Maximal Assistance-helper does MORE THAN HALF the effort. [place] lifts or holds trunk or limbs and provides more than half the effort. 3-Qaimznlun-sgbyha does ALL the effort. Patient does none of the effort to complete the activity. Or, the assistance of 2 or more helpers is required for the patient to complete the activity. If activity was not attempted, code reason: 7-Patient Refused. 9-Not Applicable-not attempted and the patient did not perform the activity before the current illness, exacerbation or injury. 10-Not Attempted due to Environmental Limitations-(lack of equipment, weather restraints, etc.). 88-Not Attempted due to Medical Conditions or Safety Concerns. Roll Left to Right (QC): 6 Sit to Lying (QC): 6 Sit to Stand (QC): 6 Chair/Asb-lq-Egtdy Xfer(QC): 6 Bed to/from Chair: 6 Weight Bearing Right Lower Extremity: Right Full Weight Bearing Left Lower Extremity: Left Touch Toe Bearing Gait Training Does the Patient Walk?: Yes Distance: 225' Walk 10 feet (QC): 6 Walk 50 ft with 2 Turns(QC): 6 Walk 150 ft (QC): 6 Gait Assistive Device: FWW TTWB left LE with foot flat and compliance Exercises Seated Therapy Exercises: Ankle pumps, Long arc quads, Hip flexion Seated Reps: [address] Ex=Flex, Abd, Ext Standing Reps: 12 Assessment Patient appears to limit mobility due to pain. Education with patient and spouse on exercise program and mobility to improve LOF and strength. Review exercise program with patient and spouse with good demonstration. Patient to dismiss to home with home health intervention. PT Jail Goals Legal Manager Goals PT Legal Manager Goals Time Frame: Aug 31, 2019 Sit to Lying (QC): 6 Lying-Sitting on Side/Bed(QC): 6 Sit to Stand (QC): 6 Roll Left to Right (QC): 6 Chair/Ivb-jc-Uzzmz Xfer(QC): 6 Does the Patient Walk: Yes Distance: 225' Walk 10 feet (QC): 6 Walk 10ft-Uneven Surface(QC): 6 Walk 50ft with 2 Turns (QC): 6 Walk 150 ft (QC): 6 Gait Assistive Device: FWW PT Plan Treatment/Plan Treatment Plan: Discontinue PT, goals met Treatment Plan: Education, Functional Activity Costa, Gait, Safety, Therapeutic Exercise, Transfers Treatment Duration: Aug 31, 2019 Frequency: 6 times per week Estimated Hrs Per Day: .25 hour per day Patient and/or Family Agrees t: Yes Time/GCodes Time In: 1011 Time Out: 1034 Total Billed Treatment Time: 23 Total Billed Treatment 1 visit FA 10 min EX 13 min VALERIO VAZQUEZ PT Aug 29, 2019 11:13
--- NOTE | 2019-08-29 11:17 | NUR ---
CM/SS spoke with the patient upon discharge. Plan: The patient and patient's spouse plan to return home with [facility] DENZEL/SS spoke with Home Health and medical records have been faxed. A choice form was signed and completed. DME: The patient's spouse stated that they have multiple walkers through family members that they are wanting to iroquois before buying. Summary: The patient's spouse stated that she was upset and overwhelmed because she is having to deal with [employer]. The patient's spouse talked with Kevin through [employer] who answered questions for them. No other needs at this time. Addendum: 08/29/19 at 1138 by SERJIO DÍAZ reviewed / approved
[2019-08-29] MEDS: BISACODYL 5 MG (DULCOLAX) TABLET PO PRN (12:26)
[2019-08-29 12:40] VITALS: BP 133/80
== END 2019-08-29 12:40 | disposition home health service (06) | DRG 482 ==
LOC: 4TH 18:33
PROVIDERS: ADMIT Family Medicine; ATTEND Family Medicine
PROC: 0QS734Z Reposition Left Upper Femur with Internal Fixation Device, Percutaneous Approach (ICD-10-PCS; principal; 2019-08-26 16:00)
DX: S72.032A Displaced midcervical fracture of left femur, initial encounter for closed fracture (principal); D50.0 Iron deficiency anemia secondary to blood loss (chronic); I10 Essential (primary) hypertension; J30.2 Other seasonal allergic rhinitis; W11.XXXA Fall on and from ladder, initial encounter; Y99.0 Civilian activity done for income or pay
CPT/HCPCS: 36415; 73502; 80048; 85014; 85018; 85027; 87081; 94760

== ENCOUNTER 2022-03-22 13:01 | Emergency (ER) | payer BC ==
[~2022-03-22] VITALS: Ht 175 cm; Wt 90.0 kg
[~2022-03-22 13:01] MED LIST: IBUP-30 PO; MULT-567 PO; OXC5T PO; VIT1CAPS4 PO
[2022-03-22] MEDS ORDERED: DOXY-311 PO (13:30)
--- NOTE | 2022-03-22 13:31 | ED Integumentary General ---
General Chief Complaint: Bite-Animal/Human/Insect Stated Complaint: BACK OF L THIGH INSECT BITE Nursing Triage Note: PT PRESENTS TO ED WITH POSSIBLE BUG BITE ON LEFT THIGH. PT DOES NOT RECALL ANYTHING BITING HIM BUT HE NOTED SOME DISCOMFORT LAST NIGHT. PT AMB. TO FT2 WITHOUT DIFFICULTY. Source: patient Exam Limitations: no limitations History of Present Illness Date Seen by Provider: March 22, 2022 Time Seen by Provider: 13:28 Initial Comments Patient is a 66-year-old male who presents ED with redness and swelling to his left posterior thigh. Noted some pain and discomfort yesterday. Took a picture noted a small dark spot with localized redness. Noted increased redness today. Patient is concern for a bug bite. Denies pulling any insect off his skin. 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 Denies body aches, fatigue, headache, chest pain, joint pain, night sweats, diffuse rash. Denies applying topical antibiotic ointment. Noted some small white spots in the dark center. Denies of any purulent drainage Allergies and Home Medications Allergies Coded Allergies: No Known Drug Allergies (Unverified , 05/23/15) Patient Home Medication List Home Medication List Reviewed: Yes Doxycycline Monohydrate (Doxycycline Monohydrate) 100 Mg Capsule, 100 MG PO BID Prescribed by: CARLOS LOPEZ on 03/22/22 1330 Doxycycline Monohydrate (Doxycycline Monohydrate) 100 Mg Tablet, 100 MG PO BID Prescribed by: CARLOS LOPEZ on 03/22/22 1406 Ibuprofen (Advil) 200 Mg Tablet, 400 MG PO Q8H PRN for PAIN-MILD, (Reported) Entered as Reported by: JUAN CHAU on 08/26/19905 Multivitamin (Multivitamins) 1 Each Tablet, 1 TAB PO DAILY, (Reported) Entered as Reported by: JUAN CHAU on 08/26/19905 Oxycodone Hcl (Oxycodone IR) 5 Mg Tab, 5 MG PO Q4H PRN for PAIN-SEVERE Prescribed by: CHELLE COFFEY on 08/29/19 08 Vit C/Starks & Celery Ex/Grp E (Tart Starks Capsule) 1 Each Capsule, 1 CAP PO DAILY, (Reported) Entered as Reported by: JUAN CHAU on 08/26/19905 Review of Systems Review of Systems Constitutional: No chills, No diaphoresis, No malaise, No weakness EENTM: No ear pain, No blurred vision, No double vision, No nose pain, No throat pain Respiratory: No cough, No orthopnea, No short of breath Cardiovascular: No chest pain Gastrointestinal: No abdominal pain, No diarrhea, No nausea, No vomiting Genitourinary: No decreased output, No discharge Musculoskeletal: No back pain, No joint pain, No joint swelling Skin: change in color All Other Systems Reviewed Negative Unless Noted: Yes Past Aeccxvh-Txucou-Opvamw Hx Patient Social History Tobacco Use?: No Use of E-Cig and/or Vaping dev: No Substance use?: No Alcohol Use?: No Pt feels they are or have been: No Seasonal Allergies Seasonal Allergies: Yes Past Medical History Surgery/Hospitalization HX: PMH;HTN. SURGERY;LEFT FEMUR REPAIR 2019 AND VASECTOMY 1999. Surgeries: No Respiratory: No Cardiac: No Neurological: No Genitourinary: No Gastrointestinal: No Musculoskeletal: No Endocrine: No HEENT: No Cancer: No Psychosocial: No Integumentary: No Blood Disorders: No Adverse Reaction/Blood Tranf: No Physical Exam Vital Signs Vital Signs - First Documented 03/22/22 13:10 Temp 36.2 Pulse 66 Resp 16 B/P (MAP) 173/103 (126) Pulse Ox 97 O2 Delivery Room Air Capillary Refill : Less Than 3 Seconds General Appearance: WD/WN, no apparent distress HEENT: PERRL/EOMI, normal ENT inspection, TMs normal, pharynx normal Neck: non-tender, full range of motion, supple, normal inspection Cardiovascular: regular rate, rhythm, no edema, no gallop Respiratory: chest non-tender, lungs clear, normal breath sounds, no respiratory distress, no accessory muscle use Gastrointestinal: normal bowel sounds, non tender, soft Back: normal inspection Extremities: normal range of motion, no pedal edema, no calf tenderness Neurologic/Psychiatric: plant controls specialist II-XII nml as tested, no motor/sensory deficits, alert, normal mood/affect, oriented x 3 Skin: other (Dark center with no fluctuant mass. Surrounding redness with a slight white ring around the redness. No erythematous streaking. No fluctuant mass. Very minimal tenderness) Progress/Results/Core Measures Results/Orders Vital Signs/I&O 03/22/22 03/22/22 13:10 13:35 Temp 36.2 36.2 Pulse 66 66 Resp 16 16 B/P (MAP) 173/103 (126) 173/103 Pulse Ox 97 97 O2 Delivery Room Air Room Air Blood Pressure Mean: 126 Departure Communication (PCP) Possible bug bite to the left hamstring. Does have localized redness with a dark center. No necrotic tissue or fluctuant mass. No incision and drainage needed at this time. Patient does not appear toxic. Unclear if he was bitten. Denies of any obvious tick. No rash to the hands, sore throat, fever, bodyaches, joint pain, chest pain or headache. Will discharge with doxycycline concerning for cellulitis. If any of these above symptoms do develop may warrant testing for other potential etiologies such as tickborne. Appears to be more of a localized reaction however will treat for potential infectious etiology. Possible spider bite.. Discussed wound care with Neosporin. Impression Primary Impression: Cellulitis Disposition: HOME, SELF-CARE Condition: Stable Departure-Patient Inst. Decision time for Depature: 13:29 Referrals: CHELLE COFFEY MD (PCP/Family) Primary Care Physician Patient Instructions: Cellulitis (Skin Infection), Adult ED Add. Discharge Instructions: Continue monitoring rash. If increased redness, swelling, fever, joint pain, headache to return back to ED. All discharge instructions reviewed with patient and/or family. Voiced und erstanding. Scripts Doxycycline Monohydrate (Doxycycline Monohydrate) 100 Mg Tablet 100 MG PO BID for 7 Days, #14 TAB Prov: ENOC DAN 03/22/22 Doxycycline Monohydrate (Doxycycline Monohydrate) 100 Mg Capsule 100 MG PO BID for 7 Days, #14 CAP Prov: ENOC DAN 03/22/22 ENOC DAN March 22, 2022 13:31
[2022-03-22 13:35] VITALS: BP 173/103
[2022-03-22] MEDS ORDERED: DOXY100T31 PO (14:06)
== END 2022-03-22 13:35 | disposition home or self-care (01) ==
LOC: EDUNIT# 13:01 → ER 13:04
DX: L03.116 Cellulitis of left lower limb (principal)
CPT/HCPCS: 99281